=== PATIENT | female | born 1950 | race Two or more races ===

== ENCOUNTER 2017-04-14 15:12 | Inpatient (IN) | payer MEDICAID, MEDICARE ==
[~2017-04-14] VITALS: Ht 165.1 cm; Wt 64.4 kg
--- NOTE | 2017-04-14 15:16 | NUR ---
BBPA FROM [employer]: MEDICAL CLERALF ANGELA GPS PLACEMENT. ON 5150 FOR SI. PATIENT IS AWAKE, APPEARS QUIET- DEPRESSED. ADMITTED FEELING DEPRESSED AND SUICIDAL. NO SPECIFIC PLAN A THIS TIME. PATIENT ON 5150 HOLD ALREADY/ WILL CONT TO MONITOR
[2017-04-14 15:52] LABS: BASOPHILS % (AUTO) 0.4 % (0.0-2.0); EOSINOPHILS # (AUTO) 0.1 /CMM (0.0-0.7); EOSINOPHILS % (AUTO) 0.6 % (0.0-6.0); HEMATOCRIT 42 % (33-45); HEMOGLOBIN 14.8 g/dL (11.5-14.8); LYMPHOCYTES # (AUTO) 2.4 /CMM (0.8-4.8); LYMPHOCYTES % (AUTO) 27.7 % (20.0-44.0); MEAN CORPUSCULAR HEMOGLOBIN 32 PG (26.0-33.0); MEAN CORPUSCULAR HGB CONC 35 g/dl (31.0-36.0); MEAN CORPUSCULAR VOLUME 91 fL (82-100); MONOCYTES # (AUTO) 0.4 /CMM (0.1-1.30); NEUTROPHILS # (AUTO) 5.7 /CMM (1.8-8.9); NEUTROPHILS % (AUTO) 66.3 % (43.0-81.0); PLATELET COUNT (AUTO) 290 /CMM (150-450); RDW COEFFICIENT OF VARIATION 12.1 (11.5-15.0); RED BLOOD CELL COUNT(AUTO) 4.63 MIL/uL (4.0-5.2); WHITE BLOOD COUNT (AUTO) 8.6 K/uL (4.3-11.0)
[2017-04-14 16:02] LABS: ALCOHOL, BLOOD < 3 mg/dL (0-0); CALCIUM, SERUM 9.3 mg/dL (8.5-10.1); CARBON DIOXIDE 28 mmol/L (21-32); CHLORIDE 102 mmol/L (98-107); CREATININE 0.6 mg/dL (0.6-1.3); GLUCOSE 233 mg/dL (74-106); POTASSIUM 3.9 mmol/L (3.5-5.1); SODIUM SERUM 137 mmol/L (136-145); UREA NITROGEN, BLOOD 13 mg/dL (7-18)
--- NOTE | 2017-04-14 16:29 | NUR ---
URINE SAMPLE SENT TO LAB
--- NOTE | 2017-04-14 16:30 | NUR ---
PT EATTING LUNCH
--- NOTE | 2017-04-14 17:01 | NUR ---
REPORT GIVEN TO GAYATHRI RUIZ FOR ANGELA
[2017-04-14 17:15] VITALS: BP 149/78
[2017-04-14 17:16] LABS: APPEARANCE,URINE Clear (CLEAR); BILIRUBIN,URINE Negative (NEGATIVE); BLOOD, URINE Negative Ery/uL (NEGATIVE); COLOR,URINE Yellow (YELLOW); KETONES,URINE >=160 (NEGATIVE); LEUKOCYTE ESTERASE ,URINE Negative (NEGATIVE); NITRITE, URINE Negative (NEGATIVE); PROTEIN,URINE 100 mg/dl (NEGATIVE); UGLUCOSE 500 MG/DL mg/dL (NEGATIVE); UROBILINOGEN,URINE 0.2 EU/dL (0.2)
[2017-04-14] MEDS ORDERED: ACETAMINOPHEN 325 MG TABLET PO PRN (17:30)
[2017-04-14] MEDS ORDERED: MAG HYDROX/AL HYDROX/SIMETH 30 ML UDC PO PRN (17:30)
[2017-04-14] MEDS ORDERED: MAGNESIUM HYDROXIDE 30 ML UDC PO PRN (17:30)
[2017-04-14 17:34] LABS: BACTERIA,URINE Few /HPF (None Seen); RBC,URINE 0-2 /HPF (0-2); SQUAMOUS EPITHELIAL CELL,UR Few /HPF (None Seen)
--- NOTE | 2017-04-14 18:19 | NUR ---
RN NOTE: LASHONDA NOTIFIED OF ADMISSION. WAS NOTIFIED OF ADMISSION. FAMILY STATED OVER THE PHONE THAT THEY WILL CALL BACK AND TELL US WHAT MEDICATIONS THE PATIENT IS TAKING.
--- NOTE | 2017-04-14 18:22 | NUR ---
RN NOTE: FIRE PREVENTION CAPTAIN NOT NOTIFIED UNTIL THE PATIENT'S FAMILY CALLS BACK WITH THE MEDICATION INFORMATION.
[2017-04-14] MEDS ORDERED: GLIM2TAB2 PO (18:47)
[2017-04-14] MEDS ORDERED: LORA1TAB PO (18:47)
[2017-04-14] MEDS ORDERED: GLIP10TA11 PO (18:47)
[2017-04-14] MEDS ORDERED: TEMA30CA PO (18:47)
[2017-04-14] MEDS ORDERED: CARB-93 PO (18:47)
[2017-04-14] MEDS ORDERED: MIRT30TA7 PO (18:47)
--- NOTE | 2017-04-14 18:48 | NUR ---
Received pt. a call from the son Navin and he gave me the lists of meds she took at home.
--- NOTE | 2017-04-14 19:14 | NUR ---
RN NOTE: MEDICAL DOCTOR AWARE OF PATIENT ADMISSION
[2017-04-14] MEDS: glipiZIDE 10 MG TABLET PO SCH (19:30)
[2017-04-14] MEDS: CARBIDOPA/LEVODOPA 25/100 MG 1 UDTAB PO SCH (19:30)
[2017-04-14 20:00] VITALS: BP 140/80
[2017-04-15] MEDS: CARBIDOPA/LEVODOPA 25/100 MG 1 UDTAB PO SCH ×3 (08:45→17:00)
[2017-04-15] MEDS: glipiZIDE 10 MG TABLET PO SCH (08:45)
[2017-04-15] MEDS: GLIMEPIRIDE 1 MG TABLET PO SCH (08:45)
[2017-04-15] MEDS: VENLAFAXINE XR 75 MG CAP.SR.24H PO SCH ×2 (14:00→18:36)
--- NOTE | 2017-04-15 15:16 | NUR ---
GPS/RN PT REFUSED ALL THE MEDS TODAY, REFUSED TO EAT. REFUSED VS IN AM AND LABS DRAW. AMBULATORY NO ACUTE DISTRESS. DR FERRO AND MADE AWARE. COMMUNICATED WITH PT VIA TRISH ALICEA OR CLAYTON ALICEA PT IS BELIZEAN SPEAKING ONLY.
[2017-04-15 16:14] VITALS: BP 163/92
--- NOTE | 2017-04-15 17:54 | NUR ---
gps/rn pt refused 1700 meds offered x3. Pt is hebrew speaking.communicated via Charlene RUIZ .
--- NOTE | 2017-04-15 18:40 | NUR ---
gps/rn pt took effexor with the help of family members. family promise to stay to help with seroquel scheduled for 1999
[2017-04-15 19:51] VITALS: BP 155/90
[2017-04-15] MEDS ORDERED: QUETIAPINE FUMARATE 25 MG TABLET PO SCH (20:00)
--- NOTE | 2017-04-16 00:19 | NUR ---
Pt has been isolative, selectively mute, unkempt, guarded, suspicious, & delusional(persecutory). She needed multiple promptings to take her noc po meds.
--- NOTE | 2017-04-16 08:34 | NUR ---
RN-CO: REFUSED LABS , ENC 3 X STILL REFUSED.
[2017-04-16] MEDS: VENLAFAXINE XR 75 MG CAP.SR.24H PO SCH (08:36)
[2017-04-16] MEDS: glipiZIDE 10 MG TABLET PO SCH (08:37)
[2017-04-16] MEDS: GLIMEPIRIDE 1 MG TABLET PO SCH (08:37)
[2017-04-16] MEDS: CARBIDOPA/LEVODOPA 25/100 MG 1 UDTAB PO SCH ×3 (08:37→16:16)
[2017-04-16 09:48] VITALS: BP 161/90
[2017-04-16 16:00] VITALS: BP 134/80
[2017-04-16 19:52] VITALS: BP 141/71
[2017-04-16] MEDS ORDERED: QUETIAPINE FUMARATE 25 MG TABLET PO SCH (20:00)
[2017-04-17] MEDS: TEMAZEPAM 7.5 MG CAPSULE PO PRN (01:40)
[2017-04-17] MEDS: LORAZEPAM 0.5 MG TABLET PO PRN (06:30)
[2017-04-17] MEDS ORDERED: LORAZEPAM INJ 2 MG/ML VIAL ONE (06:40)
--- NOTE | 2017-04-17 06:51 | NUR ---
PATIENT WAS VERY ANXIOUS,NOT FOLLOWING DIRECTIONS,TRYING TO OPEN THE EXIT DOORS,THROWING PILLOWS,SWINGING HER HANDS TOWARDS STAFF .DR GALLEGO NOTIFIED AND GAVE AN ORDER OF ATIVAN 1 MG IM X 0NE . PATIENT RECEIVED THE ATIVAN I MG IM ON HER LEFT GLUTEAL MUSCLE WITHOUT HESITATION.
--- NOTE | 2017-04-17 06:55 | NUR ---
PATIENT REFUSED V/S TO BE TAKEN BEFORE AND AFTER IM SHOT ADMINISTRATION.
--- NOTE | 2017-04-17 06:57 | NUR ---
RESIDENT REFUSED ATIVAN 0.5MG PO. OFFERED X3 EXPLAINED BENEFITS AND CONSEQUENCES.WASTED WITH RN WITNESS.
[2017-04-17] MEDS ORDERED: LORAZEPAM INJ 2 MG/ML VIAL IM ONE (07:00)
--- NOTE | 2017-04-17 07:25 | NUR ---
PATIENT WAS NOTED ALERT,ORIENTED X 1-2,AMBULATORY,NO S/S OF ACUTE DISTRESS NOTED.
[2017-04-17 08:00] VITALS: BP 123/93
[2017-04-17] MEDS: GLIMEPIRIDE 1 MG TABLET PO SCH (09:44)
[2017-04-17] MEDS: VENLAFAXINE XR 75 MG CAP.SR.24H PO SCH (09:45)
[2017-04-17] MEDS: glipiZIDE 10 MG TABLET PO SCH (09:45)
[2017-04-17] MEDS: CARBIDOPA/LEVODOPA 25/100 MG 1 UDTAB PO SCH ×4 (09:45→16:44)
[2017-04-17] MEDS: QUETIAPINE FUMARATE 25 MG TABLET PO SCH ×4 (12:00→20:17)
--- NOTE | 2017-04-17 14:07 | NUR ---
RN NO0TES PATIENT REFUSED TAKE 1300 MEDICATION PRESCRIBED, OFFERED X3, STILL REFUSED, EXPLAINED IMPORTANT OF TAKING MEDICATION, PATIENT ALBANIAN SPEAKER, CONTINUED MONITORING.
[2017-04-17 16:30] VITALS: BP 122/60
--- NOTE | 2017-04-17 16:53 | NUR ---
Initial Discharge Plan: Pt resides at [address] [place] [address] . When asked where she would like to be discharged to, pt stated, "I don't know, I don't have a place to live." SW contacted pts Aj for collateral information (pt is a poor historian), however was unable to leave a message. Voicemail recording stated that mailbox was full and there was not enough space to leave a message. SW will follow up to attempt to locate family to provide support when planning pts discharge.
--- NOTE | 2017-04-17 17:59 | NUR ---
RN NOTES PATIENT REFUSED TAKE 1700 MEDICATION OFFERED MEDICATION X3, STILL REFUSED, CONTINUED MONITORING.
[2017-04-17 20:32] VITALS: BP 122/71
[2017-04-18 08:00] VITALS: BP 150/90
[2017-04-18] MEDS: glipiZIDE 10 MG TABLET PO SCH (09:00)
[2017-04-18] MEDS: QUETIAPINE FUMARATE 25 MG TABLET PO SCH ×3 (09:00→20:08)
[2017-04-18] MEDS: CARBIDOPA/LEVODOPA 25/100 MG 1 UDTAB PO SCH ×3 (09:00→17:00)
[2017-04-18] MEDS: GLIMEPIRIDE 1 MG TABLET PO SCH (09:00)
[2017-04-18 16:00] VITALS: BP 134/72
[2017-04-18 20:22] VITALS: BP 152/84
[2017-04-19 08:00] VITALS: BP 160/94
[2017-04-19] MEDS: CARBIDOPA/LEVODOPA 25/100 MG 1 UDTAB PO SCH ×3 (09:00→17:00)
[2017-04-19] MEDS: GLIMEPIRIDE 1 MG TABLET PO SCH (09:00)
[2017-04-19] MEDS: glipiZIDE 10 MG TABLET PO SCH (09:00)
[2017-04-19] MEDS: QUETIAPINE FUMARATE 25 MG TABLET PO SCH ×2 (09:00→17:00)
[2017-04-19 16:07] VITALS: BP 126/75
[2017-04-19] MEDS ORDERED: QUETIAPINE FUMARATE 25 MG TABLET PO SCH (20:00)
--- NOTE | 2017-04-19 22:36 | NUR ---
Patient is calm, observed lying in bed, selectively mute and refuse to answer assessment questions. Patient accepted and tolerates hs medications after several attempts, no apparent distress noted, will continue to monitor for safety and provide support.
--- NOTE | 2017-04-20 03:09 | NUR ---
At the present time, patient is observed resting in bed, eyes closed, respirations even and unlabored, will continue to monitor for safety and provide support.
[2017-04-20 08:00] VITALS: BP 155/89
[2017-04-20] MEDS: GLIMEPIRIDE 1 MG TABLET PO SCH (09:00)
[2017-04-20] MEDS: QUETIAPINE FUMARATE 25 MG TABLET PO SCH ×3 (09:00→20:00)
[2017-04-20] MEDS: glipiZIDE 10 MG TABLET PO SCH (09:00)
[2017-04-20] MEDS: CARBIDOPA/LEVODOPA 25/100 MG 1 UDTAB PO SCH ×3 (09:00→17:00)
--- NOTE | 2017-04-20 18:01 | NUR ---
PATIENT CONTINIOUSLY REFUSES MEDICATION AND EATS LATE MEALS NOW, ORAL INTAKE IMPROVED OOB TO BATHROOM TO VOID AND HAVE BED MADE
[2017-04-20 21:45] VITALS: BP 165/93
[2017-04-21 08:00] VITALS: BP 129/77
[2017-04-21] MEDS: glipiZIDE 10 MG TABLET PO SCH (09:00)
[2017-04-21] MEDS: QUETIAPINE FUMARATE 25 MG TABLET PO SCH ×3 (09:00→21:48)
[2017-04-21] MEDS: CARBIDOPA/LEVODOPA 25/100 MG 1 UDTAB PO SCH ×3 (09:00→16:15)
[2017-04-21] MEDS: GLIMEPIRIDE 1 MG TABLET PO SCH (09:00)
--- NOTE | 2017-04-21 09:42 | NUR ---
GPS/RN-NOTES PATIENT REFUSED ALL 0900AM MEDICATIONS DESPITE ENCOURAGEMENT,EXPLANATIONS RISK AND BENEFITS. STATED" NO MEDICINE". OFFERED X3.
[2017-04-21 16:00] VITALS: BP 118/72
[2017-04-21 20:00] VITALS: BP 135/104
[2017-04-22] MEDS: GLIMEPIRIDE 1 MG TABLET PO SCH (08:43)
[2017-04-22] MEDS: CARBIDOPA/LEVODOPA 25/100 MG 1 UDTAB PO SCH ×3 (08:44→17:00)
[2017-04-22] MEDS: glipiZIDE 10 MG TABLET PO SCH (08:44)
[2017-04-22] MEDS: QUETIAPINE FUMARATE 25 MG TABLET PO SCH ×3 (08:44→19:59)
[2017-04-22] MEDS: VENLAFAXINE XR 75 MG CAP.SR.24H PO SCH (09:00)
[2017-04-22 13:00] VITALS: BP 146/80
[2017-04-22 20:05] VITALS: BP 141/66
--- NOTE | 2017-04-22 22:37 | NUR ---
GPS RN NOTES PT. REFUSED WEEKLY SKIN REASSESSMENT AND PICTURES.
[2017-04-23 08:00] VITALS: BP 143/88
[2017-04-23] MEDS: GLIMEPIRIDE 1 MG TABLET PO SCH (08:33)
[2017-04-23] MEDS: glipiZIDE 10 MG TABLET PO SCH (08:34)
[2017-04-23] MEDS: VENLAFAXINE XR 75 MG CAP.SR.24H PO SCH (08:34)
[2017-04-23] MEDS: CARBIDOPA/LEVODOPA 25/100 MG 1 UDTAB PO SCH ×3 (09:00→17:00)
[2017-04-23] MEDS: QUETIAPINE FUMARATE 25 MG TABLET PO SCH ×3 (09:00→20:00)
[2017-04-23 16:18] VITALS: BP 135/78
[2017-04-23 20:05] VITALS: BP 149/69
--- NOTE | 2017-04-23 20:44 | NUR ---
GPS RN NOTES: PATIENT REFUSED SCHEDULED MEDS ON 1999, OFFERED X3, DESPITE ENCOURAGEMENT, EXPLAINED RISKS AND BENEFITS, PATIENT STRONGLY REFUSED, PATIENT STATED "NO MEDICINE". WILL CONTINUE TO MONITOR.
[2017-04-24 08:00] VITALS: BP 128/75
[2017-04-24] MEDS: CARBIDOPA/LEVODOPA 25/100 MG 1 UDTAB PO SCH ×4 (08:22→16:15)
[2017-04-24] MEDS: glipiZIDE 10 MG TABLET PO SCH ×2 (08:22→08:34)
[2017-04-24] MEDS: VENLAFAXINE XR 75 MG CAP.SR.24H PO SCH ×2 (08:22→08:34)
[2017-04-24] MEDS: GLIMEPIRIDE 1 MG TABLET PO SCH ×2 (08:22→08:34)
[2017-04-24] MEDS: QUETIAPINE FUMARATE 25 MG TABLET PO SCH ×4 (08:23→20:00)
--- NOTE | 2017-04-24 10:52 | NUR ---
Discharge Planning 04/18/16: NICO faxed [facility] an inquiry (face sheet, medical H&P, P&P, and medication list) for review. NICO received a response from Caitie from [facility] asking to come and assess pt. NICO will follow up with Caitie for scheduling purposes.
--- NOTE | 2017-04-24 11:07 | NUR ---
Discharge Planning 04/20/16: NICO faxed inquiries (face sheet, medical H&P, P&P, and medication list) [facility] [address] [facility] [address]; and fax # and [facility], [address] [place] [address]; and fax # , after discussing a more appropriate SNF to address pts needs with Dr. Collins. SW will follow up to ensure pt is safely and properly discharged.
--- NOTE | 2017-04-24 11:14 | NUR ---
Discharge Planning 04/20/2016: SW received a visit from Aj, pts inquiring about pts condition. SW provided pts with an update regarding pts progress. Pts addressed concerns about pts mental health and safety, including recent event that led her to the hospital. Pts wants her to be safe and cared for and agreed to locate placement (i.e. SNF) upon pts discharge. SW was informed to contact pts daughter Magdalena for updates. NICO will follow up to ensure pt is properly and safely discharged.
--- NOTE | 2017-04-24 11:21 | NUR ---
Discharge Planning: SW contacted pts daughter, Magdalena for discharge planning purposes. SW was unable to speak her, however left a message asking for a callback. NICO will follow up.
--- NOTE | 2017-04-24 11:36 | NUR ---
[id number]: NOTIFIED [employer] JANELL REGARDING DAUGHTER LULA WANTS TO TALK TO CONVERSE WITH [employer] AT [phone].
--- NOTE | 2017-04-24 12:00 | NUR ---
[id number]: NOTIFIED DR. CHRISTAL MICHAEL FOR PHYSICIAN CONSULT.
[2017-04-24 16:00] VITALS: BP 114/63
--- NOTE | 2017-04-24 16:58 | NUR ---
Discharge Planning: SW received a message from Nurse Charlene informing that pts daughter, Magdalena called the previous night inquiring about her mother. SW contacted pts daughter, once again and left as detailed message asking for a callback. NICO will follow up.
[2017-04-24 20:16] VITALS: BP 140/82
--- NOTE | 2017-04-24 20:47 | NUR ---
GPS RN NOTE: PATIENT REFUSED ORDERED SEROQUEL, EXPLAINED THE RISK AND BENEFIT, OFFERED X 3 ATTEMPTS, PATIENT STILL REFUSED, WILL CONTINUE TO MONITOR [id number] FOR SAFETY
[2017-04-25] MEDS: VENLAFAXINE XR 75 MG CAP.SR.24H PO SCH (09:00)
[2017-04-25] MEDS: QUETIAPINE FUMARATE 25 MG TABLET PO SCH ×3 (09:00→19:42)
[2017-04-25] MEDS: CARBIDOPA/LEVODOPA 25/100 MG 1 UDTAB PO SCH ×4 (09:00→17:00)
[2017-04-25] MEDS: glipiZIDE 10 MG TABLET PO SCH (09:00)
[2017-04-25] MEDS: GLIMEPIRIDE 1 MG TABLET PO SCH (09:00)
--- NOTE | 2017-04-25 09:23 | NUR ---
RN NOTE: PATIENT REFUSED MEDICATIONS AFTER ASKING 3 TIMES.
--- NOTE | 2017-04-25 12:41 | NUR ---
RN NOTE: PATIENT REFUSED 1300 MEDS.
--- NOTE | 2017-04-25 12:45 | NUR ---
RN NOTE: PATIENT TOOK HER 1300 MED.
--- NOTE | 2017-04-25 13:14 | NUR ---
Discharge Planning: NICO spoke to pts son Baldemar, to provide him with an update regarding pts progress. SW discussed discharge plan (i.e. transferring to a custodial facility) so that pt can receive medical support to help her in getting better. NICO discussed with pts son the reason for pts long stay at the hospital (i.e. pt is not med compliant). Pts son reported calling and or visiting his mother "so I can convince her to take her medicine." NICO informed pts son that SW was unable to speak to pts due to "mailbox being full ." NICO obtained another contact # for pts , cell. NICO informed pts son that when leaving a message to provide a time to return the call so that SW is able to respond more effectively to their needs; which pts son agreed to.
[2017-04-25 16:00] VITALS: BP 137/62
--- NOTE | 2017-04-25 17:24 | NUR ---
RN NOTE: PATIENT REFUSED 1700 MEDICATIONS.
--- NOTE | 2017-04-25 19:42 | NUR ---
GPS JOSEPH NOTES: PATIENT TOOK HER SCHEDULED MEDS. Addendum: 04/26/17 at 0141 by ROXANNE ONTIVEROS RN PATIENT TOOK HER SCHEDULED 2200 MEDS.
[2017-04-25 20:41] VITALS: BP 147/86
[2017-04-26 08:00] VITALS: BP 135/91
[2017-04-26] MEDS: CARBIDOPA/LEVODOPA 25/100 MG 1 UDTAB PO SCH ×3 (08:51→17:00)
[2017-04-26] MEDS: glipiZIDE 10 MG TABLET PO SCH (08:51)
[2017-04-26] MEDS: GLIMEPIRIDE 1 MG TABLET PO SCH (08:51)
[2017-04-26] MEDS: QUETIAPINE FUMARATE 25 MG TABLET PO SCH (08:51)
[2017-04-26] MEDS: VENLAFAXINE XR 75 MG CAP.SR.24H PO SCH (08:51)
[2017-04-26] MEDS ORDERED: HALOPERIDOL LACTATE INJ 5 MG/ML VIAL IM PRN (12:30)
[2017-04-26] MEDS ORDERED: BENZTROPINE MESYLATE (2MG/2ML) 2 MG/2 ML AMPUL IM PRN (12:30)
[2017-04-26] MEDS: HALOPERIDOL 5 MG TABLET PO SCH ×2 (13:05→17:18)
[2017-04-26] MEDS: BENZTROPINE MESYLATE (1 MG) 1 MG TABLET PO SCH ×2 (13:05→17:18)
[2017-04-26 16:00] VITALS: BP 109/62
--- NOTE | 2017-04-26 16:04 | NUR ---
GROUP NOTES: S: Patient states, "I don't have questions...I am concerned about where I will go [after hospital]..." O: Patient seems withdrawn during group session. Patient is sitting in the corner of the room and does not make much eye contact. A: Patient seems to be declining. Patient seems more reclusive and is not compliant with treatment. Patient's thought process is very linear and she does not engage in conversation. P: Patient will continue her stay at the hospital until she is stable. SW to secure placement for patient.
[2017-04-26 20:00] VITALS: BP 105/61
[2017-04-27 08:00] VITALS: BP 114/75
[2017-04-27] MEDS: BENZTROPINE MESYLATE (1 MG) 1 MG TABLET PO SCH ×2 (08:43→16:05)
[2017-04-27] MEDS: HALOPERIDOL 5 MG TABLET PO SCH ×2 (08:43→16:05)
[2017-04-27] MEDS: CARBIDOPA/LEVODOPA 25/100 MG 1 UDTAB PO SCH ×3 (08:43→16:05)
[2017-04-27] MEDS: GLIMEPIRIDE 1 MG TABLET PO SCH (08:43)
[2017-04-27] MEDS: glipiZIDE 10 MG TABLET PO SCH (08:43)
[2017-04-27 16:00] VITALS: BP 129/81
[2017-04-27 20:00] VITALS: BP 126/95
[2017-04-28] MEDS: TEMAZEPAM 7.5 MG CAPSULE PO PRN (02:58)
--- NOTE | 2017-04-28 03:00 | NUR ---
PATIENT NOT SLEEPING, TEMAZEPAM 7.5 MG CAP 1 PO GIVEN.
[2017-04-28 08:08] VITALS: BP 133/89
[2017-04-28] MEDS: GLIMEPIRIDE 1 MG TABLET PO SCH (08:16)
[2017-04-28] MEDS: HALOPERIDOL 5 MG TABLET PO SCH ×2 (08:16→16:19)
[2017-04-28] MEDS: glipiZIDE 10 MG TABLET PO SCH (08:16)
[2017-04-28] MEDS: BENZTROPINE MESYLATE (1 MG) 1 MG TABLET PO SCH ×2 (08:16→16:18)
[2017-04-28] MEDS: CARBIDOPA/LEVODOPA 25/100 MG 1 UDTAB PO SCH ×3 (08:16→16:19)
[2017-04-28 15:53] VITALS: BP 144/89
[2017-04-28 20:00] VITALS: BP 147/77
[2017-04-29 08:00] VITALS: BP 131/81
[2017-04-29] MEDS: HALOPERIDOL 5 MG TABLET PO SCH ×2 (09:16→16:31)
[2017-04-29] MEDS: BENZTROPINE MESYLATE (1 MG) 1 MG TABLET PO SCH ×2 (09:16→16:30)
[2017-04-29] MEDS: glipiZIDE 10 MG TABLET PO SCH (09:16)
[2017-04-29] MEDS: GLIMEPIRIDE 1 MG TABLET PO SCH (09:16)
[2017-04-29] MEDS: CARBIDOPA/LEVODOPA 25/100 MG 1 UDTAB PO SCH ×3 (09:16→16:30)
[2017-04-29] MEDS: BOOST GLUCOSE CONTROL VANILLA 237 ML BOX PO SCH ×2 (11:00→17:00)
[2017-04-29 16:00] VITALS: BP 115/70
--- NOTE | 2017-04-29 19:30 | NUR ---
RN OPENING NOTES RECEIVED PATIENT IN HER ROOM RESTING, ALERT AND ORIENTED X2, ANXIOUS. VS STABLE. 1:1 STATUS. NO APPARENT DISTRESS NOTED AT THIS TIME. RESPIRATIONS EVEN AND UNLABORED. NO S/S OR COMPLAINTS OF PAIN. AT FALL PRECAUTIONS IMPLEMENTED. PATIENT EDUCATED ON USE OF THE CALL MANDEL. WILL CONTINUE TO MONITOR Q 15 MIN FOR SAFETY AND BEHAVIOR.
[2017-04-29 19:40] VITALS: BP 136/80
[2017-04-30 08:00] VITALS: BP 150/78
[2017-04-30] MEDS: BOOST GLUCOSE CONTROL VANILLA 237 ML BOX PO SCH ×2 (08:00→17:16)
[2017-04-30] MEDS: glipiZIDE 10 MG TABLET PO SCH (08:22)
[2017-04-30] MEDS: GLIMEPIRIDE 1 MG TABLET PO SCH (08:22)
[2017-04-30] MEDS: BENZTROPINE MESYLATE (1 MG) 1 MG TABLET PO SCH ×2 (08:22→16:40)
[2017-04-30] MEDS: CARBIDOPA/LEVODOPA 25/100 MG 1 UDTAB PO SCH ×3 (08:22→16:40)
[2017-04-30] MEDS: HALOPERIDOL 5 MG TABLET PO SCH ×3 (08:22→20:21)
--- NOTE | 2017-04-30 11:54 | NUR ---
Discharge Planning: SW contacted [facility] for discharge planning purposes. Per pts daughter, pt receives psychiatric services at mental health center from Claudia Macias. NICO contacted Center and was informed that Claudia Macias was not a psychiatrist but a Incident Response Specialist. SW was transferred to Claudia Macias's voicemail and left a message. NICO will follow up.
--- NOTE | 2017-04-30 12:01 | NUR ---
Discharge Planning: SW spoke to pts Norberto and pts son, Norberto Liang for discharge planning purposes. SW discussed alternative placement (i.e. prison facility) as transitional care to provide support for pt after discharge; including facilities ([facility] and [facility]) which were already in place to care for pt once discharged. SW provided family with education (i.e. information about prison facilities and type of services) to inform them. Pts and son declined the help stating they had adequate and sufficient care for pt at home. Pts reported being retired and having the time to care for his "all day." He also reported having additional family (i.e. daughter, son, and niece) who "already help her bath, give her food and her pill every day." SW explained reason for pts long stay based on non med compliant and how a nursing facility can provide support in that area. Pts and son were adamant about bringing pt home. SW will discuss family's discharge plan with psychiatrist to further inform treatment. SW will follow up.
--- NOTE | 2017-04-30 12:23 | NUR ---
Discharge Planning: SW met with pt on this date to inquire about discharge plan. Pt reported wanting to return home upon discharge. SW will follow up to ensure pt is properly and safely discharged.
[2017-04-30 16:00] VITALS: BP 149/64
--- NOTE | 2017-04-30 16:44 | NUR ---
GPS/RN PER LIBAN IN PHARMACY, DO NOT ADMINISTER 1600 DOSE BECAUSE ITS TOO CLOSE TO 2000 DOSE.
[2017-04-30] MEDS: LORAZEPAM 0.5 MG TABLET PO PRN (16:49)
--- NOTE | 2017-04-30 17:13 | NUR ---
GPS/RN PATIENT IS ANXIOUS, AGITATED AND RESTLESS, REQUESTED ATIVAN, ADMINISTERED ATIVAN 0.5 MG , WILL CONTINUE TO MONITOR.
--- NOTE | 2017-04-30 20:00 | NUR ---
GPS RN NOTE patient calm and compliant with medication tonight. Sitter at bedside. Will continue to monitor.
[2017-04-30 20:02] VITALS: BP 127/83
[2017-05-01 08:06] VITALS: BP 141/66
[2017-05-01] MEDS: HALOPERIDOL 5 MG TABLET PO SCH ×3 (08:51→20:18)
[2017-05-01] MEDS: CARBIDOPA/LEVODOPA 25/100 MG 1 UDTAB PO SCH ×3 (08:51→16:18)
[2017-05-01] MEDS: GLIMEPIRIDE 1 MG TABLET PO SCH (08:51)
[2017-05-01] MEDS: BENZTROPINE MESYLATE (1 MG) 1 MG TABLET PO SCH ×3 (08:51→16:18)
[2017-05-01] MEDS: glipiZIDE 10 MG TABLET PO SCH (08:51)
[2017-05-01] MEDS: BOOST GLUCOSE CONTROL VANILLA 237 ML BOX PO SCH ×2 (08:52→17:00)
--- NOTE | 2017-05-01 12:03 | NUR ---
Discharge Planning: SW contacted [facility] to follow up on linking pt to psychiatric services upon her discharge. SW was transferred to Claudia Macias, Port Traffic Manager's voicemail. A detailed message was left asking for a call back. NICO will follow up.
[2017-05-01] MEDS: VENLAFAXINE XR 75 MG CAP.SR.24H PO SCH (12:42)
[2017-05-01] MEDS: LORAZEPAM 0.5 MG TABLET PO PRN (12:46)
[2017-05-01] MEDS ORDERED: VENLAFAXINE XR 75 MG CAP.SR.24H PO SCH (13:00)
[2017-05-01 16:00] VITALS: BP 139/84
[2017-05-01 20:04] VITALS: BP 138/49
--- NOTE | 2017-05-01 20:18 | NUR ---
GPS RN NOTES: PATIENT IS CALM AND COMPLIANT WITH MEDICATION SCHEDULED FOR 1999.
--- NOTE | 2017-05-02 07:30 | NUR ---
GPS RN OPENING NOTE. PT RECEIVED A&0X2 RESTING IN BED AND AWOKEN BY NAME. PT AZERI SPEAKING. PT TOLERATING ROOM AIR WITH NO S/S OF RESP DISTRESS SAO2 97%. PT DENIES PAIN. PT RELUCTANT TO ENGAGE WITH FLAT AFFECT. PT DENIES THOUGHTS OF HARM TO SELF OR OTHERS. BED IN LOWEST LOCKED POSITION WITH HANDRAILS X2. WILL CONTINUE TO MONITOR.
[2017-05-02 08:00] VITALS: BP 144/73
[2017-05-02] MEDS: BOOST GLUCOSE CONTROL VANILLA 237 ML BOX PO SCH ×2 (09:17→16:27)
[2017-05-02] MEDS: GLIMEPIRIDE 1 MG TABLET PO SCH (09:18)
[2017-05-02] MEDS: glipiZIDE 10 MG TABLET PO SCH (09:19)
[2017-05-02] MEDS: CARBIDOPA/LEVODOPA 25/100 MG 1 UDTAB PO SCH ×3 (09:19→16:27)
[2017-05-02] MEDS: HALOPERIDOL 5 MG TABLET PO SCH ×3 (09:19→20:49)
[2017-05-02] MEDS: BENZTROPINE MESYLATE (1 MG) 1 MG TABLET PO SCH ×3 (09:19→16:27)
--- NOTE | 2017-05-02 09:46 | NUR ---
Discharge Planning: SW spoke to pts son, Navin and pts daughter Magdalena for discharge planning purposes. SW facilitated a discussion with the family to address concerns regarding pts plan for discharge. SW discussed Psychiatrist's recommendations regarding placing pt in a residential facility in order to help with the transition as well as provide a medical support group manager. SW explained pts transfer to a residential facility as temporary. SW also informed pts family pt was in agreement of being released to a residential facility. Family however adamantly refused placement. Per Baldemar, pt had "30/10 care." Pts son stated that pt would be cared for by pts , daughter, himself, a niece and cousin. Pts son stated they would help with bathing, providing meals and ensuring pt took her medication; including transporting pt to her medical appointment. SW obtained additional information about pts outside psychiatrist. Mildred Mcduffie N. [facility]. [facility]; . SW will follow up to ensure pt is properly and safely discharged.
--- NOTE | 2017-05-02 10:33 | NUR ---
Discharge Planning: SW contacted [facility]; and spoke to Claudia Macias, pts Event Lighting Specialist who facilitated psychiatric appointment for pt upon discharge. SW scheduled an appointment for pt on Sunday05/07/17 at 1pm. SW inquired about an earlier appointment (i.e. Sunday); which Event Lighting Specialist stated not having availability on that date. Per Event Lighting Specialist, pt must meet with her to arrange a follow up appointment with the psychiatrist. SW will follow up to ensure pt is properly and safely discharged.
--- NOTE | 2017-05-02 12:00 | NUR ---
GPS RN. PT FOR CT SCAN. TRANSPORT VIA [facility].
--- NOTE | 2017-05-02 13:00 | NUR ---
GPS RN NOTES. VENLAFAXINE OF STOCK, PHARMACY CONTACTED TO REFILL.
[2017-05-02] MEDS: VENLAFAXINE XR 75 MG CAP.SR.24H PO SCH (14:40)
[2017-05-02 16:36] VITALS: BP 124/73
[2017-05-02 20:18] VITALS: BP 114/81
[2017-05-02] MEDS: TEMAZEPAM 7.5 MG CAPSULE PO PRN (20:49)
[2017-05-02] MEDS ORDERED: DONEPEZIL 5 MG TABLET PO SCH (22:00)
[2017-05-03] MEDS: HALOPERIDOL 5 MG TABLET PO SCH ×2 (07:54→12:52)
[2017-05-03] MEDS: BOOST GLUCOSE CONTROL VANILLA 237 ML BOX PO SCH (07:54)
[2017-05-03 08:00] VITALS: BP 137/85
[2017-05-03] MEDS: CARBIDOPA/LEVODOPA 25/100 MG 1 UDTAB PO SCH ×2 (08:58→12:52)
[2017-05-03] MEDS: BENZTROPINE MESYLATE (1 MG) 1 MG TABLET PO SCH ×2 (08:58→12:52)
[2017-05-03] MEDS: glipiZIDE 10 MG TABLET PO SCH (08:58)
[2017-05-03] MEDS: GLIMEPIRIDE 1 MG TABLET PO SCH (08:58)
--- NOTE | 2017-05-03 11:37 | NUR ---
Discharge Planning: NICO contacted [facility], [address] to schedule a follow up appointment, with Dr. Kelly Jung, for pt upon discharge. Per Ingrid from [facility], Ms Michelle is not a pt of theirs. SW will follow up with pts son, Baldemar in order to get accurate information for the purpose properly and safely discharging pt.
--- NOTE | 2017-05-03 11:53 | NUR ---
Discharge Planning: SW searched for Dr. Kelly Jung's contact # on line, obtained [phone] and called in order to schedule a medical follow up appointment for pt. Per inside technical sales representative, Ms. Michelle is not a pt of theirs. NICO is awaiting for pts correct medical contact information from pts son, Baldemar.
[2017-05-03] MEDS: VENLAFAXINE XR 75 MG CAP.SR.24H PO SCH (12:52)
--- NOTE | 2017-05-03 12:55 | NUR ---
DR. GALLEGO GAVE AN ORDER TO D/C HOLD AND D/C HOME TODAY. PT. TO FOLLOW UP WITH PSYCH AND MEDICAL DOCTORS.
--- NOTE | 2017-05-03 15:34 | NUR ---
RN NOTE: PATIENT DISCHARGED AT 1530. PATIENT RECEIVED DISCHARGE ORDERS FROM LASHONDA AND MACHINE STITCHER MADE AWARE OF DISCHARGE. PRESCRIPTIONS WERE FILLED OUT, INFORMATION PACKET GIVEN, EDUCATION TAUGHT TO PATIENT AND FAMILY. PATIENT IS MEDICALLY STABLE. V/S STABLE. NO ACUTE DISTRESS AT THE MOMENT OF DISCHARGE. PATIENT HAS NO SI/HI DURING DISCHARGE. BELONGINGS WERE GIVEN TO PATIENT DURING DISCHARGE. PATIENT HAD NO SKIN PROBLEMS DURING DISCHARGE. PATIENT DISCHARGED TO HOME WITH FAMILY.
--- NOTE | 2017-05-03 15:41 | NUR ---
Discharge Note: Patient will be discharged home, [address] [place] [address]; via private transportation. Pts , Aj and son, Aj Liang will be picking pt up at 4:00pm. Pt and family have been notified and are in agreement with discharge. Pts Strapping Machine Operator is Dr. Kelly Jung, [address] [place] [address]. [place] [address]; . Pt has an appointment with Dr. Mendoza on 05/07/2017 at 8:20 am. Pts Psychiatrist is Dr. Lubna Plasencia, [facility], [address] [facility] [address]; . Pt has an appointment with Claudia Macias, [employer] [facility] on 05/07/2017 at 1:00pm. Ms. Macias will schedule a psychiatric appointment for patient on that day. SW provided the family with the appropriate resources to assist in pts aftercare.
== END 2017-05-03 15:30 | disposition home or self-care (01) | DRG 885 ==
LOC: ER 15:17 → GPS 17:10 → EDBD 17:10 → GPS 04-15 17:19
PROVIDERS: ADMIT Psychiatry & Neurology Psychosomatic Medicine; ATTEND Internal Medicine
DX: F29 Unspecified psychosis not due to a substance or known physiological condition (principal); F02.81 Dementia in other diseases classified elsewhere, unspecified severity, with behavioral disturbance; G20 Parkinson's disease; F32.3 Major depressive disorder, single episode, severe with psychotic features; R45.851 Suicidal ideations; E78.5 Hyperlipidemia, unspecified; E11.9 Type 2 diabetes mellitus without complications
CPT/HCPCS: 36415; 70450-TC; 80048-TC; 80305; 81000-TC; 85025-TC; 87081-TC; A4606; G0480; J2060; Z7610